=== PATIENT | male | born 2000 | race Two or more races ===

== ENCOUNTER 2023-12-11 19:03 | Emergency (ER) | payer MEDICAID, OTHER ==
[~2023-12-11] VITALS: Ht 170.2 cm; Wt 80.0 kg
[2023-12-11] MEDS: ONDANSETRON ODT 4 MG TAB PO ONE (22:49)
[2023-12-11 23:25] VITALS: BP 132/87; PULSE 55; RESP 16; TEMP 97.5; O2SAT 100
== END 2023-12-11 23:26 | disposition home or self-care (01) ==
LOC: ER 19:03
DX: S09.8XXA Other specified injuries of head, initial encounter (principal); W18.39XA Other fall on same level, initial encounter; Y93.66 Activity, soccer; Y92.89 Other specified places as the place of occurrence of the external cause; Y99.8 Other external cause status
CPT/HCPCS: 70450; 72125; 93005; 99284; Q0162